=== PATIENT | female | born 1955 | race Caucasian/White ===

== ENCOUNTER → 2018-01-16 | Outpatient (CLI) | payer MEDICARE | END | disposition home or self-care (01) | LOC: PCVCCLINIC 09:30 | DX: I25.119 Atherosclerotic heart disease of native coronary artery with unspecified angina pectoris (principal); I10 Essential (primary) hypertension; E78.5 Hyperlipidemia, unspecified; J45.30 Mild persistent asthma, uncomplicated; Z87.891 Personal history of nicotine dependence; Z79.899 Other long term (current) drug therapy; Z79.82 Long term (current) use of aspirin; Z88.8 Allergy status to other drugs, medicaments and biological substances | CPT/HCPCS: 80061; 93005; G0463 ==

== ENCOUNTER → 2018-07-10 | Outpatient (CLI) | payer MEDICARE | END | disposition home or self-care (01) | LOC: PCVCCLINIC 10:30 | PROVIDERS: ATTEND Internal Medicine | DX: I25.10 Atherosclerotic heart disease of native coronary artery without angina pectoris (principal); I10 Essential (primary) hypertension; E78.5 Hyperlipidemia, unspecified; J45.30 Mild persistent asthma, uncomplicated; E78.00 Pure hypercholesterolemia, unspecified; M81.0 Age-related osteoporosis without current pathological fracture; Z87.891 Personal history of nicotine dependence; Z79.82 Long term (current) use of aspirin | CPT/HCPCS: 80061; 93005; G0463 ==

== ENCOUNTER → 2019-01-21 | Outpatient (CLI) | payer MEDICARE | END | disposition home or self-care (01) | LOC: PCVCCLINIC 13:00 | PROVIDERS: ATTEND Internal Medicine | DX: I25.10 Atherosclerotic heart disease of native coronary artery without angina pectoris (principal); I10 Essential (primary) hypertension; E78.5 Hyperlipidemia, unspecified; J45.30 Mild persistent asthma, uncomplicated; E78.00 Pure hypercholesterolemia, unspecified; M81.0 Age-related osteoporosis without current pathological fracture; Z87.891 Personal history of nicotine dependence; Z79.82 Long term (current) use of aspirin | CPT/HCPCS: 36415; 80061; 93005; G0463 ==

== ENCOUNTER → 2019-07-08 | Outpatient (CLI) | payer MEDICARE | END | disposition home or self-care (01) | LOC: PCVCCLINIC 16:06 | PROVIDERS: ATTEND Internal Medicine | DX: I25.10 Atherosclerotic heart disease of native coronary artery without angina pectoris (principal); I10 Essential (primary) hypertension; E78.5 Hyperlipidemia, unspecified; J45.30 Mild persistent asthma, uncomplicated; E78.00 Pure hypercholesterolemia, unspecified; M81.0 Age-related osteoporosis without current pathological fracture; Z90.710 Acquired absence of both cervix and uterus; Z87.891 Personal history of nicotine dependence; Z88.8 Allergy status to other drugs, medicaments and biological substances; Z79.82 Long term (current) use of aspirin; Z79.899 Other long term (current) drug therapy | CPT/HCPCS: 36415; 80061; 93005; G0463 ==

== ENCOUNTER → 2019-08-23 | Outpatient (CLI) | payer MEDICARE ==
--- NOTE | 2019-08-23 10:40 | PCVCIMAG ---
APPROVED REPORT Study performed: 08/23/2019 09:41:58 Exam: Stress Echocardiogram Indication: Hyperlipidemia, Hypertension, Chest pain Patient Location: Echo lab Stress Nurse: Caitie Barber RN Status: routine Ht: 5 ft 5 in HR: 109 bpm BP: 160/90 mmHg Rhythm: NSR Procedure The patient underwent an Exercise Stress Test using the Davi Protocol. Blood pressure, heart rate, and EKG were monitored. An Echocardiogram was performed by video surveillance technician in four stages in quad fashion. At peak stress, four selected images were obtained and placed side by side with resting images for comparison. Stress Test Details Stress Test: Exercise stress testing was performed using a Davi protocol. HR Resting HR: 109 bpmMax Heart Rate (APMHR): 158 bpm Max HR Achieved: 184 bpmTarget HR (85% APMHR): 134 bpm % of APMHR: 116 Recovery HR: 100 bpm HR response to stress: Normal HR response to stress BP Resting BP: 160/90 mmHg Max BP: 198/84 mmHg Recovery BP: 174/84 mmHg BP response to stress: Normal blood pressure response to stress. ECG Resting ECG: Sinus Rhythm Stress ECG: Sinus Rhythm ST Change: Normal Maximum ST Deviation: 0 mm Arrhythmia: None Recovery ECG: Sinus Rhythm Recovery ST Change: Normal Recovery ST Deviation: 0 mm Recovery Arrhythmia: None Clinical Reason for Termination: Maximal effort Exercise duration: 9 min sec Highest Stage Achieved: Stage 4: 4.2 mph at 16% grade. Exercise capacity: 10.10 METs Overall Exercise Capacity for Age: Normal Angina Score: None Stress ECG Conclusion Clinical: Non-ischemic ECG: Non-ischemic Power Treadmill Score is 9.0 which is Low risk. Pre-Stress Echo The resting Echocardiogram showed normal left ventricular contractility with an estimated Ejection Fraction of about 55-60%. Normal wall motion in all segments on baseline images. Post-Stress Echo The stress Echocardiogram showed normal left ventricular contractility with an estimated Ejection Fraction of about 65-70%. Normal augmentation of wall motion in all segments on post stress images. Clinical No clinical or ECG evidence for ischemia. Conclusion Clinical Response: Non-ischemic Exercise Capacity: Average Stress ECG Response: Non-ischemic Stress Echo Images: Non-ischemic The left ventricle is normal in size and wall thickness in both the rest and stress images. No significant valvular abnormalities. Normal stress echocardiogram with maximal exercise stress. Other Information Study Quality: Good <Conclusion> The left ventricle is normal in size and wall thickness in both the rest and stress images. No significant valvular abnormalities. Normal stress echocardiogram with maximal exercise stress.
== END ==
LOC: PCVCIMAG 09:04
PROVIDERS: ATTEND Internal Medicine
DX: I25.10 Atherosclerotic heart disease of native coronary artery without angina pectoris (principal); I10 Essential (primary) hypertension; E78.5 Hyperlipidemia, unspecified; R07.9 Chest pain, unspecified; E78.00 Pure hypercholesterolemia, unspecified; M81.0 Age-related osteoporosis without current pathological fracture; Z87.891 Personal history of nicotine dependence; Z90.710 Acquired absence of both cervix and uterus; Z88.8 Allergy status to other drugs, medicaments and biological substances
CPT/HCPCS: 93325; 93351